=== PATIENT | female | born 1990 | race Caucasian/White ===

== ENCOUNTER 2023-09-11 20:25 | Inpatient (IN) | payer BC, SELFPAY ==
[2023-09-11] VITALS (13 sets, daily range): BP systolic 125–184; BP diastolic 75–108; PULSE 83–86; BMI 25.4; BMI 24.5
[2023-09-11 18:45] LABS: % Eosinophils 2.3 % (0-6); % Immature Granulocytes 0.6 % (0-0.5); % Lymphocytes 21.1 % (20.5-51.1); % Monocytes 8.1 % (1.7-9.3); % Neutrophils 66.9 % (42.2-75.2); Absolute Basophils 0.1 10^3/uL (0-0.2); Absolute Eosinophils 0.2 10^3/uL (0-0.7); Absolute Immature Granulocytes 0.1 10^3/uL (0-0.05); Absolute Lymphocytes 1.8 10^3/uL (1.2-3.4); Absolute Monocytes 0.7 10^3/uL (0.1-0.6); Absolute Neutrophils 5.8 10^3/uL (1.4-6.5); Mean Corp Hgb Conc. 26.1 g/dL (33.0-37.0); Mean Corpuscular Hgb 17.3 pg (27.0-31.0); Mean Corpuscular Volume 66.2 fL (81.0-99.0); Mean Platelet Volume 8.8 fL (7.4-10.4); Nucleated Red Blood Cells % 0 %; Platelet Count 795 10^3/uL (130-400); Red Blood Cell Count 2.72 10^6/uL (4.20-5.40); Red Cell Dist. Width 19.8 % (11.5-14.5); White Blood Cell Count 8.7 10^3/uL (4.8-10.8)
--- NOTE | 2023-09-11 18:49 | ED.GENMED ---
History of Present Illness
General
Chief Complaint: Fatigue
Time Seen by Provider: 09/11/23 18:49
History of Present Illness
History of Present Illness:
HPI: The patient presents with 2 weeks of generalized fatigue and weakness along with shortness of breath and some degree of chest discomfort. She had an outpatient hemoglobin of 4.9. She denies any rectal bleeding. She has a history of
perforated gastric ulcer from a year ago that was repaired surgically. She states she had a follow-up endoscopy and colonoscopy which showed some degree of gastritis along with diverticulosis. She currently has no abdominal pain and this feels
nothing like the time that she had a perforated gastric ulcer.
EXAM:
GENERAL: Appears generally weak and pale, she is hypertensive
HEENT: Moist oral mucosa
CARDIOVASCULAR: No murmurs, borderline tachycardic heart rate, regular rhythm, No chest wall tenderness
PULMONARY: No respiratory distress, breath sounds are clear and equal
ABDOMEN: Soft with no peritoneal signs, no tenderness
NEUROLOGIC: Excellent strength all extremities, no coordination deficits
PSYCHIATRIC: Appropriate mental status, normal insight and judgement
EXTREMITIES: Nontender, no edema, moves all extremities equally
SKIN: Appears pale
TIME OF INITIAL ENCOUNTER: 6:50 PM
NUMBER AND COMPLEXITY OF PROBLEMS ADDRESSED AT THE ENCOUNTER
� Chronic conditions affecting care: Iron deficiency anemia, history of gastritis and gastric ulcer perforation
� Acute Exacerbation and/or Progression of Chronic Illness: This is an acute problem severe anemia, GI bleed,
� Differential Diagnosis includes: Doubt recurrence of gastric ulcer as she has no abdominal pain and this feels nothing like when she was here in October 2022
AMOUNT AND/OR COMPLEXITY OF DATA TO BE REVIEWED AND ANALYZED
� I performed an independent evaluation of and my interpretation is:
EKG: Sinus 90, normal axis, no acute ST abnormality
CT:
X-rays:
Laboratory Studies: White count 8.7, hemoglobin 4.7, platelets 795, BUN 9
Other:
� Review of other/old records: The patient was admitted here in October 2022 with a perforated gastric ulcer�she had an ex lap at that time with repair of perforated gastric ulcer with modified Theo patch. At that time the
patient was taken piroxicam. Discharge hemoglobin from last year was 8.3
� Clinical information was obtained by an independent historian: I spoke to boyfriend at bedside
� Prescriptions/Medications Considered but not given:
� Further testing considered but not performed:
RISK OF COMPLICATIONS AND/OR MORBIDITY OR MORTALITY OF PATIENT MANAGEMENT
� Social determinants of health affecting care: Lives at home
� Discussion with other providers: Spoke to the lab to add on iron studies. Hospitalist, Dr. Elias for admission at 7:11 PM
� Escalation of care including admission/observation vs risk of discharge considered: The patient's hemoglobin is 4.7. Will plan 3 units of blood transfusion. Iron level is also low along with high TIBC.
Phy Exam
Physical Exam
Physical Exam:
See HPI
Course
Orders/Labs/Results
Orders:
Orders
09/11/23 18:26
ECG [Electrocardiogram (*1)] Urgent
Reason for Study: Chest Pain
EKG- Treatment ONCE
09/11/23 18:36
Type+Screen Urgent
Complete Blood Count/With Diff Urgent
Comprehensive Metabolic Panel Urgent
Ferritin Urgent
Comment: ADD ON
Iron Urgent
Comment: ADD ON
Total Iron Binding Urgent
Comment: ADD ON
09/11/23 18:52
* Blood Bank Products Urgent
Blood Bank Products: *Packed RBC Leuko(PRBC's)
Quantity: 3
Transfuse Today: Yes
Reason: Anemia
09/11/23 18:53
Add On- LAB Urgent
Tests Added?: iron panel; ferritin
09/11/23 19:02
Pantoprazole [Protonix IV] 40 mg IV NOW STA
Abnormal Lab Results
09/11/23
18:36
RBC 2.72 L 10^6/uL
(4.20-5.40)
Hgb 4.7 L* g/dL
(12.0-16.0)
Hct 18.0 L* %
(37.0-47.0)
MCV 66.2 L fL
(81.0-99.0)
MCH 17.3 L pg
(27.0-31.0)
MCHC 26.1 L g/dL
(33.0-37.0)
RDW 19.8 H %
(11.5-14.5)
Plt Count 795 H 10^3/uL
(130-400)
Abs Immat Gran (auto) 0.1 H 10^3/uL
(0-0.05)
Absolute Monos (auto) 0.7 H 10^3/uL
(0.1-0.6)
Immature Gran % 0.6 H %
(0-0.5)
Carbon Dioxide 21 L mmol/L
(22-30)
Iron 28 L ug/dl
(37-170)
TIBC 524 H ug/dl
(265-497)
% Saturation 5 L %
(20-50)
Crossmatch IS Only See Detail
09/11/23 18:36
09/11/23 18:36
Vital Signs
Initial and Last Documented VS:
Initial Vital Signs
Temp Pulse Resp BP Pulse Ox
98.3 F 102 26 184/108 98
09/11/23 18:23 09/11/23 18:23 09/11/23 18:23 09/11/23 18:23 09/11/23 18:23
Last Documented Vital Signs
Temp Pulse Resp BP Pulse Ox
99.7 F 87 19 168/92 99
09/11/23 19:54 09/11/23 19:54 09/11/23 19:54 09/11/23 19:54 09/11/23 19:54
*Critical Care Note
Total Time (30-74mins, 75-104mins- exclusive of procedures): Not Applicable
ED Attending Note
-
Portions of this chart may have been created with voice recognition software.� Occasional wrong word or��sound alike� substitutions may have occurred due to the inherent limitations of voice recognition software.
Discharge Plan
Departure
Patient Disposition: Admit
Date of Disposition: 09/11/23
Time of Disposition: 19:12
Presentation/result/management discussed w/ accepting MD/DO: Hospitalist
Discharge Problem:
Severe anemia
Prescriptions:
No Action
lamotrigine [Lamictal] 150 mg Tablet
150 mg PO HS
ascorbic acid (vitamin C) 1,000 mg Tablet
1,000 mg PO DAILY
tizanidine 4 mg Tablet
4 mg PO HS
fexofenadine 180 mg Tablet
180 mg PO DAILY
frovatriptan 2.5 mg Tablet
2.5 mg PO BIDPRN PRN (Reason: migraines)
montelukast [Singulair] 10 mg Tablet
10 mg PO HS
bupropion HCl [Wellbutrin XL] 300 mg Tablet Extended Release 24 Hr
300 mg PO DAILY
Calcium Magnesium 500 mg calcium -250 mg Tablet
1 tab PO Q48H@0800
Addyi 100 mg Tablet
100 mg PO HS
vitamin D3-folic acid 125 mcg (5,000 unit)-1 mg Tablet
1 tab PO DAILY
lisinopril 10 mg Tablet
10 mg PO DAILY Qty: 30 0RF
loperamide [Imodium] 2 mg Capsule
4 mg PO DAILYPRN PRN (Reason: diarrhea)
dextroamphetamine-amphetamine 15 mg tablet
15 mg PO NOON
dextroamphetamine-amphetamine 30 mg capsule,extended release 24hr
30 mg PO DAILY
Excedrin Migraine 250-250-65 mg Tablet
2 tab PO BIDPRN PRN (Reason: migraine)
Rinvoq 15 mg tablet extended release 24 hr
15 mg PO DAILY
Interventions
Interventions:
*Risk Screen - Suicide Last Done: 09/11/23 18:23
*General Assessment Last Done: 09/11/23 18:23
*Neglect/Abuse Screening Last Done: 09/11/23 18:23
ED- Fall Risk Assessment Last Done: 09/11/23 19:35
Discharge Date and Time
Print Language: SUDANESE
[2023-09-11 18:51] LABS: Hemoglobin 4.7 g/dL (12.0-16.0)
[2023-09-11 18:59] LABS: ALT (SGPT) 13 U/L (0-35); AST (SGOT) 19 U/L (14-36); Albumin 4.9 g/dl (3.5-5.0); Alkaline Phosphatase 56 U/L (38-126); Blood Urea Nitrogen 9 mg/dl (7-17); Calcium 9.9 mg/dl (8.4-10.2); Carbon Dioxide 21 mmol/L (22-30); Chloride 106 mmol/L (98-107); Glucose 93 mg/dl (70-99); Potassium 4.7 mmol/L (3.5-5.1); Sodium 139 mmol/L (135-145); Total Bilirubin 0.2 mg/dl (0.2-1.3); Total Protein 7.8 g/dl (6.3-8.2); eGFR > 60.00
--- NOTE | 2023-09-11 19:01 | EDRN ---
HGB 4.7
[2023-09-11] MEDS: PROTONIX IV 40 MG IV (19:26)
[2023-09-11 19:27] LABS: Iron 28 ug/dl (37-170)
[2023-09-11 19:36] LABS: Hypochromasia 1+; Normal RBC Morphology Yes
[2023-09-11 19:37] LABS: Microcytosis 1+; Percent Saturation 5 % (20-50); Stomatocytes 1+; Total Iron Binding Capacity 524 ug/dl (265-497)
--- NOTE | 2023-09-11 19:58 | HPS.HSE ---
Family Physician
-
Family Physician: Russel Fontenot
Chief Complaint
-
SOB, Chest Pain, Fatigue
History of Present Illness
Patient is a 32y F with PMH significant for RA, migraine headaches and iron deficiency anemia who presents to ED complaining of SOB, fatigue and chest pain. Patient states that she has had worsening symptoms of fatigue, SOB and generalized
weakness over the past 2 weeks or so. She had outpatient labs tsang on Thursday and the following day - when patient slept through phone calls - her PCP asked police to present to her house for wellness check. Patient was advised of low Hgb at that
time and encouraged to present to the ED. She decided to wait and attempt to arrange outpatient iron infusions; however, today she also developed chest pain and presented to the ED for further evaluation.
Patient denies any gross / active bleeding including hematuria, hematochezia, melena, etc.
She had a small nose bleed about 2 weeks ago, but states that this stopped promptly and was low volume. She does admit to occasional nose bleeding - usually associated with dry weather.
She states that her menses are extremely light due to Mirena IUD in place. She has menses for 3-4 days in length and uses only a light liner - no pads, etc. LMP was about 1 week ago.
Patient notes that she has been followed by Dr. Wilber Ayers (Hematology) for iron deficiency anemia. She previously received iron infusions - last about one year ago.
She was hospitalized here in October 2022 for perforated gastric ulcer requiring emergency surgical repair. She has not had additional iron infusions / Hematologic follow-up since that time.
Patient is taking Rinvoq for rheumatoid arthritis.
Medical History
Past Medical History
Past Medical History: Reports Other
Additional Past Medical History:
Migraine Headaches
Gastric Ulcer with Perforation
Rheumatoid Arthritis
Iron Deficiency Anemia
Hypertension
Past Surgical History: Reports Other
Additional Past Surgical History:
IUD Placement
Ex Lap / Modified Theo Patch (10/2022)
R Forearm ORIF
Breast Reduction
Social History
Tobacco: Non-smoker
Alcohol: None
Drug: None
Family History
Family History: Other (Father: CAD, DM Mother: Gastritis / Anemia, DM)
Allergies / Home Medications
Allergies reflects when Allergies were last updated in [facility].
Home Medications with original date entered in [facility]
Allergy/Medication List:
Allergies
Allergy/AdvReac Type Severity Reaction Status Date / Time
iron Allergy Nausea / Verified 09/11/23 19:30
Vomiting
Penicillins Allergy Rash Verified 09/11/23 18:23
Home Medications
ascorbic acid (vitamin C) 1,000 mg tablet 1,000 mg PO DAILY Supplement 10/14/22
bupropion HCl 300 mg 24 hr tablet, extended release (Wellbutrin XL) 300 mg PO DAILY Mental Health/Anxiety 10/14/22
calcium carb, gluc 500 mg calcium-magnesium gluc, oxide 250 mg tablet (Calcium Magnesium) 1 tab PO Q48H@0800 Supplement 10/14/22
fexofenadine 180 mg tablet 180 mg PO DAILY ALLERGY 10/14/22
flibanserin 100 mg tablet (Addyi) 100 mg PO HS SEX 10/14/22
frovatriptan 2.5 mg tablet 2.5 mg PO BIDPRN PRN migraines 10/14/22
lamotrigine 150 mg tablet (Lamictal) 150 mg PO HS Mental Health/Anxiety 10/14/22
montelukast 10 mg tablet (Singulair) 10 mg PO HS ASTHMA 10/14/22
tizanidine 4 mg tablet 4 mg PO HS 10/14/22
vitamin D3 125 mcg (5,000 unit)-folic acid 1 mg tablet 1 tab PO DAILY Supplement 10/14/22
lisinopril 10 mg tablet 10 mg PO DAILY #30 tabs 10/17/22
xdlfurx-cximxuppodzxe-assgneoa 250 mg-250 mg-65 mg tablet (Excedrin Migraine) 2 tab PO BIDPRN PRN migraine 09/11/23
dextroamphetamine-amphetamine 15 mg tablet 15 mg PO NOON 09/11/23
dextroamphetamine-amphetamine ER 30 mg 24hr capsule,extend release 30 mg PO DAILY 09/11/23
loperamide 2 mg capsule 4 mg PO DAILYPRN PRN diarrhea 09/11/23
upadacitinib 15 mg tablet,extended release 24 hr (Rinvoq) 15 mg PO DAILY 09/11/23
Review of Systems
-
History Source: Patient
A 12 point ROS was completed and negative except as noted: Yes
Constitutional: Reports Fatigue; Denies Fever or Chills
Respiratory: Reports Trouble Breathing; Denies Cough
Cardiac: Reports Chest Pain; Denies Palpitations
Abdomen/GI: Denies Abdominal Pain, Nausea, Vomiting, Diarrhea, Constipated, Bloody Stools, Black Stools or Anorexia
: Denies Dysuria, Frequency, Flank Pain, Bleeding or Dark Urine
Musculoskeletal: Denies Joint Pain or Edema
Neurological: Reports Dizzy and Weakness; Denies Headache
Psych: Denies Depression or Anxiety
Physical Exam
Vital Signs
Vital Signs
Temp Pulse Resp BP Pulse Ox
99.7 F 87 19 168/92 99
09/11/23 19:54 09/11/23 19:54 09/11/23 19:54 09/11/23 19:54 09/11/23 19:54
Physical Exam
General: Other (32y F pale appearing and mildly dyspneic with conversation.)
HEENT: Moist mucous membranes and PERRLA
Respiratory: Clear; No Wheezes, Rales or Rhonchi
Cardiac: S1/S2 and Regular Rhythm; No Murmur
GI: Soft, Non Tender, Non Distended and Normal Bowel Sounds
Musculoskeletal: No Clubbing, No Cyanosis and No Edema
Neuro: AO x 3
Laboratory Results
-
09/11/23 18:36
09/11/23 18:36
Laboratory Results
Total Bilirubin 0.2 mg/dl (0.2-1.3) 09/11/23 18:36
AST 19 U/L (14-36) 09/11/23 18:36
ALT 13 U/L (0-35) 09/11/23 18:36
Alkaline Phosphatase 56 U/L (38-126) 09/11/23 18:36
Impression/Plan
-
A/P: Patient is a 32y F with PMH significant for iron deficiency anemia, gastric ulcer and RA who presents to ED complaining of fatigue, SOB and chest pain.
Symptomatic Acute on Chronic Iron Deficiency Anemia
- Admit for further evaluation and treatment.
- Patient with evident symptoms attributable to anemia.
- EKG is unremarkable and dyspnea / chest pain are likely secondary to anemia.
- PRBCs x 3 units has been ordered in the ED.
- Follow for clinical improvement.
- Source of anemia is not clear from patient history.
- Followed by Hem[facility] for iron deficiency and had iron infusions (nearly one year ago now), but also with known history of gastric ulcers / perf.
- GI and Hematology consulted for further recommendations.
- Would likely benefit from initial GI evaluation and then arrangements for outpatient follow-up / periodic iron infusions if needed.
- Monitor during stay for any obvious source of blood loss.
Gastric Ulcer History
- Required ex lap with perf repair October 2022.
- Restart PPI therapy.
- GI evaluation as noted above.
- Heme test stools.
Rheumatoid Arthritis
- Stable at present. No complaints of significant joint pains, etc.
- Hold Rinvoq for now - note that this can be associated with both anemia and gastric ulcers.
- Follow for any clinical changes.
Benign Hypertension
- Stable. Continue lisinopril.
- Hydralazine PRN for higher BP.
Migraine Headaches
- Stable at present. Follow for any breakthrough headaches.
DVT Prophylaxis: SCDs
Code Status: Full
[2023-09-11 20:03] LABS: Ferritin 3.7 ng/ml (6.24-137)
--- NOTE | 2023-09-11 22:30 | PTCARENOTE ---
Pt. admitted from E.D., AAO x 3, BP 178/105, asymptomatic, NSR on monitor, skin intact, call herbert within reach.
[2023-09-11] MEDS: ZANAFLEX 4 MG PO (22:31)
[2023-09-11] MEDS: SINGULAIR 10 MG PO (22:31)
[2023-09-11] MEDS: LAMICTAL 150 MG PO (22:35)
--- NOTE | 2023-09-11 23:00 | PTCARENOTE ---
Starting transfusion for pt. now with hgb 4.7 with total of 3 units PRBC's to be infused.
[2023-09-11] MEDS: TYLENOL 650 MG PO (23:02)
[2023-09-12] VITALS (10 sets, daily range): BP systolic 138–180; BP diastolic 89–118; PULSE 75–90
[2023-09-12] MEDS: TYLENOL 650 MG PO (06:14)
[2023-09-12 08:38] LABS: Hematocrit 28.9 % (37.0-47.0); Mean Corp Hgb Conc. 29.1 g/dL (33.0-37.0); Mean Corpuscular Hgb 21.6 pg (27.0-31.0); Mean Corpuscular Volume 74.5 fL (81.0-99.0); Platelet Count 630 10^3/uL (130-400); Red Blood Cell Count 3.88 10^6/uL (4.20-5.40); Red Cell Dist. Width 22.4 % (11.5-14.5); White Blood Cell Count 10.9 10^3/uL (4.8-10.8)
[2023-09-12 08:49] LABS: Hemoglobin 8.4 g/dL (12.0-16.0)
[2023-09-12 08:57] LABS: Blood Urea Nitrogen 7 mg/dl (7-17); Calcium 9.4 mg/dl (8.4-10.2); Carbon Dioxide 19 mmol/L (22-30); Chloride 107 mmol/L (98-107); Estimated Creatinine Clearance 114 ml/min; Glucose 74 mg/dl (70-99); Potassium 4.4 mmol/L (3.5-5.1); Sodium 138 mmol/L (135-145); eGFR > 60.00
[2023-09-12] MEDS: NSS (PRESERVATIVE FREE) 10 ML IV (09:32)
[2023-09-12] MEDS: PROTONIX IV 40 MG IV (09:32)
[2023-09-12] MEDS: WELLBUTRIN XL (24 hour extended release) 300 MG PO (09:33)
[2023-09-12] MEDS: ZESTRIL 10 MG PO ×2 (09:33→12:39)
--- NOTE | 2023-09-12 09:43 | W.PN.HOSP.TC ---
Today's Communication/Plan
-
see bold
Assessment / Plan
Assessment / Plan
32y F with PMH significant for iron deficiency anemia, gastric ulcer and RA who presents to ED complaining of fatigue, SOB and chest pain.
Pt seen and examined with nurse Yumiko Peters present at bedside:
Gen: NAD, AAOx3.
Eyes: EOMI, PERRLA, no scleral icterus.
Neck: supple.
CV: RRR, +S1/S2, no m/r/g.
Resp: CTAB, no rales, wheezes, or rhonchi.
Abd: +BS, soft, NT, ND
Skin: No rashes.
Neuro: CN 2-12 intact, non-focal.
Psych: Normal mood and affect.
Symptomatic Acute on Chronic Iron Deficiency Anemia:
-Patient with evident symptoms attributable to anemia
-Followed by [facility] for iron deficiency and had iron infusions (nearly one year ago now), but also with known history of gastric ulcers / perf.
-EKG is unremarkable and dyspnea / chest pain are likely secondary to anemia.
-s/p 3U pRBCs
-Fe deficient by labs, start IV Fe
-c/s GI/Heme
Other problems:
Gastric Ulcer History: Required ex lap with perf repair October 2022. cont PPI. Hemetest stool. c/s GI.
Rheumatoid Arthritis: Rinvoq (note that this can be associated with both anemia and gastric ulcers)
Essential Hypertension: increase Lisinopril to 20mg daily
Migraine Headaches: Imitrex dose now
FULL/SCDs
Total time spent on today's encounter was 50 minutes which included time spent in counseling the patient/family regarding diagnosis and treatment plan as listed above, goals of care, and symptom management. Case was discussed with nursing staff,
specialists, and care coordinators/case management. All labs and imaging personally reviewed by me. Remainder the time spent in detailed review of previous records, lab data, imaging, and other medical provider documentation.
Anticipated Discharge: Within 24 hours
Subjective/Interval History
-
Date of Service: September 12, 2023
c/o headache. Denies CP/SOB.
Objective Data
-
Labs:
Laboratory Results
09/12/23
06:48
WBC 10.9 H
Hgb 8.4 L D
Hct 28.9 L
Plt Count 630 H D
Sodium 138
Potassium 4.4
Chloride 107
Carbon Dioxide 19 L
BUN 7
Creatinine 0.6
Glucose 74
Calcium 9.4
Vital Signs:
Vital Signs
Temp Pulse Resp BP Pulse Ox
98.6 F 76 16 170/105 100
09/12/23 07:04 09/12/23 09:33 09/12/23 07:04 09/12/23 09:33 09/12/23 07:04
I&O
09/11/23 09/12/23 09/13/23
06:59 06:59 06:59
Intake Total 1370 / 1370
Balance 1370 / 1370
--- NOTE | 2023-09-12 10:03 | CON.GI ---
Addendum entered and electronically signed by Aram Lyn MD 09/12/23 12:35:
I saw and examined the patient.
The PA's note was reviewed and I agree with the note.
Comment:
The patient is a 32 year old female with h/o RA, migraine, iron deficiency anemia, perforated gastric ulcer from NSAID use s/p ex lap and surgical repair (Theo patch) in October 2022 who p/w symptomatic anemia.
Impression / Rec:
1. Anemia -her anemia seems to be from hematologic etiology and not from GI blood loss. Although she does have history of perforated gastric ulcer, this was NSAID induced. She stopped using NSAIDs since except for occasional Exederin use for SANTOS.
She denies abdominal pain, nausea, vomiting. No clinical symptoms or signs of GI bleeding such as melena, rectal bleeding, or coffee-ground emesis. XIOMARA showed brown stool with negative Hemoccult. She also had follow-up EGD/colonoscopy on 12/2022
and the procedural reports as well as pathology results were reviewed. EGD -ve for ulcer, -ve H pylori. Duodenal bx was also -ve for celiac disease. Colonoscopy was unremarkable. Given her -ve evaluations thus far, her anemia seems non-GI
related. Follow up with heme rec's. GI will s/o, please call with questions.
Original Note:
Consultation
-
Date/Time Consultation Requested: 09/12/23
Date/Time Consultation Performed: 09/12/23
Requesting Provider: Dr Elias
Performing Provider: Dr Lyn / Elvia Teresa PA-C
Reason for Consultation: anemia
Medical History
Chief Complaint / HPI
Chief Complaint: symptomatic anemia
History of Present Illness:
This is a 32 year old female with a past medical history of RA, migraine, iron deficiency anemia secondary to perforated gastric ulcer that required emergent ex lap and surgical repair (Theo patch) in October 2022, who had been experiencing
increasing fatigue for the past 2 weeks. Worsening fatigue with chest pain and shortness of breath caused her to come to the ER yesterday. She had also had outpatient labs done last week showing low hemoglobin, upon arrival in the ER on 09/10, Hgb
was 4.7. She was transfused 3 units PRBCs and today Hgb has improved to 8.4. CP and SOB have now resolved. She denies any abdominal pain, melena, hematochezia or hematuria. This feels 'very different' from the symptoms she had with the perforated
gastric ulcer last year. At that time she had been taking high doses of NSAIDs. Patient is adamant that she rarely takes NSAIDs now, admits to taking Excedrin about once a month for headaches. She denies alcohol, tobacco or drug use. She notes that
her menstrual periods are regular and actually very light due to Mirena IUD. She was seeing Hematology for NIRAV prior to her hospital admission last year for the perforated ulcer, had previously received 1 iron infusion, but did not follow up with
them after. She did follow up with her established GI doctor in [place], and had both endoscopy and colonoscopy in December 2022. Patient brought up the reports on her phone and records reviewed: EGD showed no ulcer, biopsies were negative for H
pylori or celiac disease and gastric biopsies showed mild gastritis. Colonoscopy was unremarkable with the exeption of diverticulosis. Patient has never had a capsule study. She does note that she started a new medication for RA, Rinvoq, around
January 2023.
There is no family history of GI malignancies or celiac disease. Her maternal grandmother had UC. Her mother reportedly also has iron deficiency anemia and received iron and B12 infusions. Labs reviewed: Hgb 8.4 (was 4.7 yesterday) s/p 3 units
PRBCs, MCV 74.5, MCH 21.6, WBC 10.9, platelets 630, BUN 7, creatinine 0.6, serum iron 28, TIBC 524, %sat 5, ferritin 3.7, LFTs normal: t bili 0.2, AST 19, ALT 13, alk phos 56. Hematology has also been consulted.
Past Medical History
Past Medical History: Other (rheumatoid arthritis, migraine headaches, NIRAV)
Past Surgical History: Orthopedic (R forearm ORIF) and Other (exploratory laparotomy with perforated gastric ulcer repair (Theo patch) 10/2022, breast reduction)
Social History
Tobacco: Non-Smoker
Alcohol: None
Drug: None
Living: Other (with boyfriend)
Employment: Employed
Family History
Family History: Other (no GI malignancies or celiac disease. Grandmother had UC.)
Allergies / Home Medications
Allergy/AdvReac Type Severity Reaction Status Date / Time
iron Allergy Nausea / Verified 09/11/23 19:30
Vomiting
Penicillins Allergy Rash Verified 09/11/23 18:23
�Medication �Instructions �Recorded
ascorbic acid (vitamin C) 1,000 mg 1,000 mg PO DAILY Supplement 10/14/22
tablet
bupropion HCl 300 mg 24 hr tablet, 300 mg PO DAILY Mental 10/14/22
extended release (Wellbutrin XL) Health/Anxiety
calcium carb, gluc 500 mg 1 tab PO Q48H@0800 Supplement 10/14/22
calcium-magnesium gluc, oxide 250
mg tablet (Calcium Magnesium)
fexofenadine 180 mg tablet 180 mg PO DAILY ALLERGY 10/14/22
flibanserin 100 mg tablet (Addyi) 100 mg PO HS SEX 10/14/22
frovatriptan 2.5 mg tablet 2.5 mg PO BIDPRN PRN migraines 10/14/22
lamotrigine 150 mg tablet 150 mg PO HS Mental Health/Anxiety 10/14/22
(Lamictal)
montelukast 10 mg tablet 10 mg PO HS ASTHMA 10/14/22
(Singulair)
tizanidine 4 mg tablet 4 mg PO HS 10/14/22
vitamin D3 125 mcg (5,000 1 tab PO DAILY Supplement 10/14/22
unit)-folic acid 1 mg tablet
lisinopril 10 mg tablet 10 mg PO DAILY #30 tabs 10/17/22
arelakl-sywzwhkpphtmn-zmscilvd 250 2 tab PO BIDPRN PRN migraine 09/11/23
mg-250 mg-65 mg tablet (Excedrin
Migraine)
dextroamphetamine-amphetamine 15 15 mg PO NOON 09/11/23
mg tablet
dextroamphetamine-amphetamine ER 30 mg PO DAILY 09/11/23
30 mg 24hr capsule,extend release
loperamide 2 mg capsule 4 mg PO DAILYPRN PRN diarrhea 09/11/23
upadacitinib 15 mg tablet,extended 15 mg PO DAILY 09/11/23
release 24 hr (Rinvoq)
Review of Systems
-
History Source: Patient
All other systems: A 12 pt ROS was Negative except as stated above in HPI
Vital Signs
Temp Pulse Resp BP Pulse Ox
98.6 F 76 16 170/105 100
09/12/23 07:04 09/12/23 09:33 09/12/23 07:04 09/12/23 09:33 09/12/23 07:04
Physical Exam
Exam
General: Well Developed, Well Nourished and No Apparent Distress
Respiratory: Clear
Cardiac: Regular Rhythm
GI: Soft, Non Tender, Non Distended and Normal Bowel Sounds
Rectal: Hem Negative and Other (scant amount of brown stool in rectal vault, hemoccult negative)
Skin: Warm
Neuro: AO x 3
Psych: Calm
Results
WBC 10.9 10^3/uL (4.8-10.8) H 09/12/23 06:48
Hgb 8.4 g/dL (12.0-16.0) L D 09/12/23 06:48
Hct 28.9 % (37.0-47.0) L 09/12/23 06:48
MCV 74.5 fL (81.0-99.0) L 09/12/23 06:48
Plt Count 630 10^3/uL (130-400) H D 09/12/23 06:48
Absolute Neuts (auto) 5.8 10^3/uL (1.4-6.5) 09/11/23 18:36
Sodium 138 mmol/L (135-145) 09/12/23 06:48
Potassium 4.4 mmol/L (3.5-5.1) 09/12/23 06:48
Chloride 107 mmol/L (98-107) 09/12/23 06:48
Carbon Dioxide 19 mmol/L (22-30) L 09/12/23 06:48
BUN 7 mg/dl (7-17) 09/12/23 06:48
Creatinine 0.6 mg/dL (0.6-1.0) 09/12/23 06:48
Calcium 9.4 mg/dl (8.4-10.2) 09/12/23 06:48
Total Bilirubin 0.2 mg/dl (0.2-1.3) 09/11/23 18:36
AST 19 U/L (14-36) 09/11/23 18:36
ALT 13 U/L (0-35) 09/11/23 18:36
Alkaline Phosphatase 56 U/L (38-126) 09/11/23 18:36
Diagnostic Image Results:
Prior GI Procedures:
EGD: December 2022 - reports reviewed on patient's portal on her phone. No ulcer noted and biopsies negative for H pylori and celiac disease.
Colonoscopy: December 2022 - as above, showed diverticulosis and otherwise unremarkable.
Assessment / Plan
-
This is a 32 year old female with a past medical history of RA, migraine, iron deficiency anemia secondary to perforated gastric ulcer that required emergent ex lap and surgical repair (Theo patch) in October 2022, who had been experiencing
increasing fatigue for the past 2 weeks. Worsening fatigue with chest pain and shortness of breath caused her to come to the ER yesterday. She had also had outpatient labs done last week showing low hemoglobin, upon arrival in the ER on 09/10, Hgb
was 4.7. She was transfused 3 units PRBCs and today Hgb has improved to 8.4. CP and SOB have now resolved. She denies any abdominal pain, melena, hematochezia or hematuria. She does get heartburn and takes Pepcid as needed for this. States the
omeprazole was not helpful when she tried it in the past. Is not currently on a PPI. This feels 'very different' from the symptoms she had with the perforated gastric ulcer last year. At that time she had been taking high doses of NSAIDs. Patient is
adamant that she rarely takes NSAIDs now, admits to taking Excedrin about once a month for headaches. She denies alcohol, tobacco or drug use. She notes that her menstrual periods are regular and actually very light due to Mirena IUD. She was seeing
Hematology for NIRAV prior to her hospital admission last year for the perforated ulcer, had previously received 1 iron infusion, but did not follow up with them after. She did follow up with her established GI doctor in [place], and had both
endoscopy and colonoscopy in December 2022. Patient brought up the reports on her phone and records reviewed: EGD showed no ulcer, biopsies were negative for H pylori or celiac disease and gastric biopsies showed mild gastritis. Colonoscopy was
unremarkable with the exeption of diverticulosis. Patient has never had a capsule study. She does note that she started a new medication for RA, Rinvoq, around January 2023.
There is no family history of GI malignancies or celiac disease. Her maternal grandmother had UC. Her mother reportedly also has iron deficiency anemia and received iron and B12 infusions. Labs reviewed: Hgb 8.4 (was 4.7 yesterday) s/p 3 units
PRBCs, MCV 74.5, MCH 21.6, WBC 10.9, platelets 630, BUN 7, creatinine 0.6, serum iron 28, TIBC 524, %sat 5, ferritin 3.7, LFTs normal: t bili 0.2, AST 19, ALT 13, alk phos 56. Hematology has also been consulted.
IMPRESSION / PLAN:
Iron Deficiency Anemia
- h/o perforated gastric ulcer in October 2022 (secondary to heavy NSAID use), s/p repair, Theo patch
- she has carefully avoided NSAIDs since that time (admits occasional, 1/month Excedrin use)
- currently with no abdominal symptoms and heme NEGATIVE on rectal examination -- doubt GI cause of her NIRAV at this time -- no need for endoscopic evaluation
- recent EGD/colonoscopy 12/2022 that were normal; we did discuss consideration of outpatient capsule study to visualize the small bowel
- she did start Rinvoq 7 months ago, which has now been held, which may be a contributing factor to her current anemia?
- await Hematology consult
H/o gastric ulcer
- continue PPI
- she does get heartburn, relieved with PRN Pepcid
Other medical problems managed per hospitalist and will await further input from Hematology.
-
-
Thank you for consultation and allowing me to participate in the patient's care. Please call the front office coordinator GI physician during the after hours with any questions or concerns.
[2023-09-12] MEDS: IMITREX 50 MG PO (12:39)
[2023-09-12] MEDS: FERRLECIT 110 MG IV (13:21)
--- NOTE | 2023-09-12 13:46 | PTCARENOTE ---
Patient having high blood pressure this shift, second dose of lisinopril given per order. Pt receiving iron infusion and advanced to regular diet. GI is signing off, per their note. RN gave migraine medication this afternoon. Pt states she takes
prescription migraine medicine at home but ran out of it. Her S.O. has no personal bottles to bring in for pharmacy to barcode. We do not carry her home migraine med, Imitrex was given as an alternative. Pt has not had any bowel movement this far
into shift. See MAR/flowsheets for further care details.
--- NOTE | 2023-09-12 14:26 | CM ---
Patient was admitted from home where she lives with her her significant other, is independent with adl's and ambulation, no dme.
[facility]acy: [facility]
PCP: Dr. Fontenot
--- NOTE | 2023-09-12 18:52 | PTCARENOTE ---
Patient called RN into room because she wants to leave AMA. both primary RN and bellows charger assembler educated patient on plan of care and investigated patients understanding of current diagnosis and risks of leaving hospital AMA. Pt still wants to leave but is
open to talking to MD about plan of care. Pt's vitals stable, denies pain, received IV iron infusion this shift.
--- NOTE | 2023-09-12 18:53 | PTCARENOTE ---
Reached out to hospitalist control valve mechanic and [facility] overnight provider through [facility] about patient wishing to leave AMA
--- NOTE | 2023-09-12 19:02 | PTCARENOTE ---
Patient stated she did not want to wait longer for MD to come talk to her. She signed AMA form. AMA form is attached to her chart
--- NOTE | 2023-09-12 21:43 | CON.ONC ---
Impression
Impression
Recurrent iron deficiency anemia
Hx gastric ulcer attributed to NSAID use
Plan
Plan
Feeling better s/p transfusion.
IV iron appropriate should she remain in the hospital.
No objection to d/c.
She strongly prefers to follow up with Dr. Ayers.
Thank you for consult.
Patient History
History of Present Illness
32 yo woman with prior history of iron deficiency anemia. Follows with Dr. Wilber Ayers, [facility]. Last year diagnosed with perforated gastric ulcer that required emergent ex lap and surgical repair (Theo patch) in October 2022. Presented with
increasing fatigue for the past 2 weeks. Worsening fatigue with chest pain and shortness of breath caused her to come to the ER yesterday. She had also had outpatient labs done last week showing low hemoglobin, upon arrival in the ER on 09/10, Hgb
was 4.7. She was transfused 3 units PRBCs and today Hgb has improved to 8.4. CP and SOB have now resolved. She denies any abdominal pain, melena, hematochezia or hematuria. She notes that her menstrual periods are regular and actually very light due
to Mirena IUD. She was seeing Hematology for NIRAV prior to her hospital admission last year for the perforated ulcer, had previously received 1 iron infusion. She states that outpt IV iron was planned but insurance approval was pending. She become
more symptomatic in the interim. She did follow up with her established GI doctor in [place], and had both endoscopy and colonoscopy in December 2022. Patient brought up the reports on her phone and records reviewed: EGD showed no ulcer,
biopsies were negative for H pylori or celiac disease and gastric biopsies showed mild gastritis. Colonoscopy was unremarkable with the exeption of diverticulosis. Patient has never had a capsule study. She does note that she started a new
medication for RA, Rinvoq, around January 2023.
There is no family history of GI malignancies or celiac disease. Her maternal grandmother had UC.
Past-Medical/Surgical History
Past Medical History
Past Medical History: Other (rheumatoid arthritis, migraine headaches, NIRAV)
Past Surgical History: Orthopedic (R forearm ORIF) and Other (exploratory laparotomy with perforated gastric ulcer repair (Theo patch) 10/2022, breast reduction)
Social History
Tobacco: Non-Smoker
Alcohol: None
Drug: None
Living: Other (with boyfriend)
Employment: Employed
Family History
Family History: Other (no GI malignancies or celiac disease. Grandmother had UC.)
Patient Medication
�Medication �Instructions �Recorded �Confirmed �Last Taken �Type
ascorbic acid (vitamin C) 1,000 mg 1,000 mg PO DAILY Supplement 10/14/22 09/11/23 09/11/23 History
tablet
bupropion HCl 300 mg 24 hr tablet, 300 mg PO DAILY Mental 10/14/22 09/11/23 09/11/23 History
extended release (Wellbutrin XL) Health/Anxiety
calcium carb, gluc 500 mg 1 tab PO Q48H@0800 Supplement 10/14/22 09/11/23 Unknown History
calcium-magnesium gluc, oxide 250
mg tablet (Calcium Magnesium)
fexofenadine 180 mg tablet 180 mg PO DAILY ALLERGY 10/14/22 09/11/23 09/11/23 History
flibanserin 100 mg tablet (Addyi) 100 mg PO HS SEX 10/14/22 09/11/23 09/10/23 History
frovatriptan 2.5 mg tablet 2.5 mg PO BIDPRN PRN migraines 10/14/22 09/11/23 09/10/23 History
lamotrigine 150 mg tablet 150 mg PO HS Mental Health/Anxiety 10/14/22 09/11/23 09/10/23 History
(Lamictal)
montelukast 10 mg tablet 10 mg PO HS ASTHMA 10/14/22 09/11/23 09/10/23 History
(Singulair)
tizanidine 4 mg tablet 4 mg PO HS 10/14/22 09/11/23 09/10/23 History
vitamin D3 125 mcg (5,000 1 tab PO DAILY Supplement 10/14/22 09/11/23 09/11/23 History
unit)-folic acid 1 mg tablet
lisinopril 10 mg tablet 10 mg PO DAILY #30 tabs 10/17/22 09/11/23 09/11/23 Rx
ofrqgnl-paoltneuglmon-pwzdxxwl 250 2 tab PO BIDPRN PRN migraine 09/11/23 09/11/23 1 Week Ago History
mg-250 mg-65 mg tablet (Excedrin ~09/04/23
Migraine)
dextroamphetamine-amphetamine 15 15 mg PO NOON 09/11/23 09/11/23 09/10/23 History
mg tablet
dextroamphetamine-amphetamine ER 30 mg PO DAILY 09/11/23 09/11/23 09/11/23 History
30 mg 24hr capsule,extend release
loperamide 2 mg capsule 4 mg PO DAILYPRN PRN diarrhea 09/11/23 09/11/23 2 Weeks Ago History
~08/28/23
upadacitinib 15 mg tablet,extended 15 mg PO DAILY 09/11/23 09/11/23 09/11/23 History
release 24 hr (Rinvoq)
Review of Systems
-
History Source: Patient
All Other Systems: Reviewed and Negative
Physical Exam
-
General: Well Developed, Well Nourished and No Apparent Distress
Cardiology: Normal Sinus Rhythm
Pulmonary: Clear
GI: Soft; Negative Distended
Musculoskeletal: No Clubbing, No Cyanosis and No Edema
Extremities: Pulses Present; Negative Phlebitic Signs
Neurology: Non Focal
Skin: Warm and Dry
Hematologic / Lymphatic: No Lymphadenopathy
Psych: Calm and Intact Judgement/Insight
Labs
Lab Results
WBC 10.9 10^3/uL (4.8-10.8) H 09/12/23 06:48
RBC 3.88 10^6/uL (4.20-5.40) L 09/12/23 06:48
Hgb 8.4 g/dL (12.0-16.0) L D 09/12/23 06:48
Hct 28.9 % (37.0-47.0) L 09/12/23 06:48
MCV 74.5 fL (81.0-99.0) L 09/12/23 06:48
MCH 21.6 pg (27.0-31.0) L 09/12/23 06:48
MCHC 29.1 g/dL (33.0-37.0) L 09/12/23 06:48
RDW 22.4 % (11.5-14.5) H 09/12/23 06:48
Plt Count 630 10^3/uL (130-400) H D 09/12/23 06:48
MPV 9.0 fL (7.4-10.4) 09/12/23 06:48
Abs Immat Gran (auto) 0.1 10^3/uL (0-0.05) H 09/11/23 18:36
Absolute Neuts (auto) 5.8 10^3/uL (1.4-6.5) 09/11/23 18:36
Absolute Lymphs (auto) 1.8 10^3/uL (1.2-3.4) 09/11/23 18:36
Absolute Monos (auto) 0.7 10^3/uL (0.1-0.6) H 09/11/23 18:36
Absolute Eos (auto) 0.2 10^3/uL (0-0.7) 09/11/23 18:36
Absolute Basos (auto) 0.1 10^3/uL (0-0.2) 09/11/23 18:36
Immature Gran % 0.6 % (0-0.5) H 09/11/23 18:36
Neutrophils % 66.9 % (42.2-75.2) 09/11/23 18:36
Lymphocytes % 21.1 % (20.5-51.1) 09/11/23 18:36
Monocytes % 8.1 % (1.7-9.3) 09/11/23 18:36
Eosinophils % 2.3 % (0-6) 09/11/23 18:36
Basophils % 1.0 % (0-2) 09/11/23 18:36
Creatinine 0.6 mg/dL (0.6-1.0) 09/12/23 06:48
Vital Signs
Vital Signs
Temp Pulse Resp BP Pulse Ox
98.9 F 95 16 159/95 100
09/12/23 15:52 09/12/23 15:52 09/12/23 15:52 09/12/23 15:52 09/12/23 15:52
== END 2023-09-12 19:01 | disposition left against medical advice (07) | DRG 812 ==
LOC: 4 WEST ACU 20:25
PROVIDERS: Emergency Medicine; ADMITTING PHYSICIAN Hospitalist; ATTENDING PHYSICIAN Internal Medicine; CONSULT PHYSICIAN Internal Medicine Gastroenterology; CONSULT PHYSICIAN Internal Medicine Hematology & Oncology; EMERGENCY PHYSICIAN Emergency Medicine; FAMILY PHYSICIAN Family Medicine
PROC: 30233N1 Transfusion of Nonautologous Red Blood Cells into Peripheral Vein, Percutaneous Approach (ICD-10-PCS; 2023-09-11)
DX: D50.9 Iron deficiency anemia, unspecified (principal); R53.83 Other fatigue; M06.9 Rheumatoid arthritis, unspecified; I10 Essential (primary) hypertension; G43.909 Migraine, unspecified, not intractable, without status migrainosus; Z87.11 Personal history of peptic ulcer disease; Z83.3 Family history of diabetes mellitus; Z82.49 Family history of ischemic heart disease and other diseases of the circulatory system; Z88.0 Allergy status to penicillin; Z91.048 Other nonmedicinal substance allergy status
CPT/HCPCS: 80048; 80053; 82728; 83540; 83550; 85025; 85027; 86850; 86900; 86901; 86920; 93005; J2916; P9016